=== PATIENT | female | born 1970 | race Caucasian/White ===

== ENCOUNTER 2024-11-15 14:43 | Emergency (ER) | payer BC, MEDICAID | END 2024-11-15 16:55 | disposition home or self-care (01) | LOC: FB.ED 14:43 | DX: S13.9XXA Sprain of joints and ligaments of unspecified parts of neck, initial encounter (principal); S40.011A Contusion of right shoulder, initial encounter; Z90.710 Acquired absence of both cervix and uterus; Z88.8 Allergy status to other drugs, medicaments and biological substances; W10.9XXA Fall (on) (from) unspecified stairs and steps, initial encounter | CPT/HCPCS: 72125; 72128; 73030-RT; 99284 ==